=== PATIENT | male | born 1935 | race Caucasian/White ===

== ENCOUNTER 2019-10-20 12:58 | Emergency (ER) | payer MEDICARE ==
[~2019-10-20] VITALS: Ht 190.5 cm; Wt 104.0 kg
[~2019-10-20 12:58] MED LIST: AMOX1TAB12 PO; ASPI-496 PO; ASPI-515 PO/NG; ATOR20TA37 PO; ATOR40TA78 PO; CHOL10003 PO; DEXA4TAB66 PO; HYDR12.517 PO; LISI-170 PO; METO-93 PO
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
--- NOTE | 2019-10-20 14:07 | NUR ---
PT RESTING IN [facility], [facility], DENIES ADDITIONAL NEEDS AT THIS TIME, CALL LIGHT ON LAP, GIVEN SPRITE FOR COMFORT, P/W/D, VSS. WAITING FOR TEST RESULTS, WCTM.
--- NOTE | 2019-10-20 14:10 | NUR ---
KNEE ABRASIONS CLEANED WITH STERILE SALINE, APPLIED NEOSPORIN AND BANDAGED. WCTM.
[2019-10-20 14:16] LABS: MEAN CORPUSCULAR HEMOGLOBIN 30.5 pg (27.5-34.5); MEAN CORPUSCULAR HGB CONC 32.7 g/dL (33.2-36.2); MEAN CORPUSCULAR VOLUME 93.3 fL (81-97); MEAN PLATELET VOLUME 9.6 fL (7.4-10.4); PLATELET COUNT 165 x10^3/uL (130-400); RED BLOOD COUNT 5.08 x10^6/uL (4.38-5.82); RED CELL DISTRIBUTION WIDTH 14.6 % (9.4-14.8)
[2019-10-20] MEDS ORDERED: NEOSPORIN OINT. PKT 1 PACKET ONE (14:16)
[2019-10-20 14:29] LABS: ANION GAP 5 mmol/L (5-15); CALCIUM 8.3 mg/dL (8.5-10.1); CHLORIDE 106 mmol/L (98-107); CREATININE 1.09 mg/dL (0.7-1.3)
[2019-10-20] MEDS ORDERED: POTASSIUM CHLORIDE 20 MEQ TAB.ER.PRT PO ONE (15:00)
[2019-10-20 15:09] LABS: BASOPHILS # (AUTO) 0.08 x10^3/uL (0-0.1); BASOPHILS % (AUTO) 0 % (0-1); EOSINOPHILS # (AUTO) 0.06 x10^3/uL (0-0.4); EOSINOPHILS % (AUTO) 0 % (1-7); LYMPHOCYTES # (AUTO) 1.44 x10^3/uL (1-3.4); LYMPHOCYTES % (AUTO) 7 % (22-44); MD SCAN; MONOCYTES # (AUTO) 0.32 x10^3/uL (0.2-0.8); MONOCYTES % (AUTO) 2 % (2-9); NEUTROPHILS # (AUTO) 17.68 x10^3/uL (1.8-6.8); NEUTROPHILS % (AUTO) 90 % (42-75)
--- NOTE | 2019-10-20 15:21 | NUR ---
PT SITTING UP IN [facility], [facility], DENIES ADDITIONAL NEEDS AT THIS TIME, CALL LIGHT ON LAP, GIVEN SPRITE FOR COMFORT, P/W/D, VSS. WAITING FOR UA RESULTS, WCTM. UA SENT TO LAB.
[2019-10-20 15:29] LABS: MICROSCOPIC NOT IND
[2019-10-20 15:31] LABS: CULTURE INDICATED? NO
--- NOTE | 2019-10-20 15:42 | NUR ---
BREAK RN: ALL TESTS RESULTED PT IS UP FOR RECHECK AT THIS TIME.
--- NOTE | 2019-10-20 16:00 | NUR ---
PT GIVEN POTASSIUM PER MAR. NAD. P/W/D. RESP WNL. Patient/Caregiver given discharge instructions and they have confirmed that they understand the instructions. Patient ambulatory with steady gait. Denies additional questions at this time.
[2019-10-20 16:03] VITALS: BP 131/78
--- NOTE | 2019-10-20 16:05 | NUR ---
pt called [facility] to come pick him up.
== END 2019-10-20 16:06 | disposition home or self-care (01) ==
LOC: ED 14:18
DX: S80.211A Abrasion, right knee, initial encounter (principal); S80.212A Abrasion, left knee, initial encounter; D72.829 Elevated white blood cell count, unspecified; J44.9 Chronic obstructive pulmonary disease, unspecified; I10 Essential (primary) hypertension; I45.10 Unspecified right bundle-branch block; I21.9 Acute myocardial infarction, unspecified; Z86.73 Personal history of transient ischemic attack (TIA), and cerebral infarction without residual deficits; W18.39XA Other fall on same level, initial encounter; Y93.89 Activity, other specified; Y92.488 Other paved roadways as the place of occurrence of the external cause; Y99.8 Other external cause status
CPT/HCPCS: 36415; 80048; 81003; 85025; 93005; 99284

== ENCOUNTER 2019-12-15 08:50 | Emergency (ER) | payer MEDICARE ==
[~2019-12-15] VITALS: Ht 190.5 cm; Wt 100.0 kg
--- NOTE | 2019-12-15 09:11 | NUR ---
SEE TRIAGE NOTE-AGREE. PT PLACED ON ALL ROOM MONITORING. EKG COMPLETED ON ARRIVAL. PT DENIES ANY SX OTHER THAN SLIGHT NUMBNESS TO R ARM AND R LEG. RA SAT RANGING FROM 88-90%. OXYGEN PLACED AT 2LITERS VIA NC. CALL LIGHT WITHIN REACH.
[2019-12-15] MEDS ORDERED: LISI-167 PO (09:22)
--- NOTE | 2019-12-15 09:38 | NUR ---
PT TO IMAGING
[2019-12-15 09:42] LABS: BASOPHILS # (AUTO) 0.03 x10^3/uL (0-0.1); BASOPHILS % (AUTO) 0 % (0-1); EOSINOPHILS # (AUTO) 0.09 x10^3/uL (0-0.4); EOSINOPHILS % (AUTO) 1 % (1-7); LYMPHOCYTES # (AUTO) 1.04 x10^3/uL (1-3.4); LYMPHOCYTES % (AUTO) 13 % (22-44); MD NO; MEAN CORPUSCULAR HEMOGLOBIN 30.1 pg (27.5-34.5); MEAN CORPUSCULAR HGB CONC 32.8 g/dL (33.2-36.2); MEAN CORPUSCULAR VOLUME 91.6 fL (81-97); MONOCYTES # (AUTO) 0.48 x10^3/uL (0.2-0.8); MONOCYTES % (AUTO) 6 % (2-9); NEUTROPHILS # (AUTO) 6.56 x10^3/uL (1.8-6.8); NEUTROPHILS % (AUTO) 80 % (42-75); PLATELET COUNT 181 x10^3/uL (130-400); RED BLOOD COUNT 4.72 x10^6/uL (4.38-5.82); RED CELL DISTRIBUTION WIDTH 14.3 % (9.4-14.8)
[2019-12-15 09:47] LABS: PROTHROMBIN TIME 10.6 Seconds (9.6-11.5)
[2019-12-15 09:49] LABS: ALBUMIN 3.3 g/dL (3.4-5.0); CALCIUM 9.2 mg/dL (8.5-10.1)
[2019-12-15 09:53] LABS: ALANINE AMINOTRANSFERASE 17 U/L (12-78); ALKALINE PHOSPHATASE 67 U/L (45-117); BILIRUBIN,TOTAL 0.9 mg/dL (0.2-1.0); CREATININE 0.76 mg/dL (0.7-1.3); TOTAL PROTEIN 6.9 g/dL (6.4-8.2)
[2019-12-15 10:07] LABS: ANION GAP 4 mmol/L (5-15); CHLORIDE 108 mmol/L (98-107)
[2019-12-15] MEDS ORDERED: GADOTERATE 10 MMOL/20 ML SYR ONE (10:28)
--- NOTE | 2019-12-15 10:34 | NUR ---
PT BACK FROM MRI. PT STATES NUMBNESS TO LUE, LLE GONE NOW. ATTEMPT TO RECHECK VS, UNABLE TO GET AUTO BP AT THIS TIME. OTHER VSS/UPDATED IN COMPUTER. URINAL PROVIDED. CALL LIGHT WITHIN REACH.
--- NOTE | 2019-12-15 10:46 | NUR ---
MANUAL BP 130/85.
--- NOTE | 2019-12-15 11:00 | NUR ---
ALL RESULTS BACK, PT FOR RECHECK.
[2019-12-15 11:52] VITALS: BP 136/82
== END 2019-12-15 11:54 | disposition home or self-care (01) ==
LOC: ED 09:20
DX: G45.9 Transient cerebral ischemic attack, unspecified (principal); E87.6 Hypokalemia; R53.1 Weakness; R20.2 Paresthesia of skin; I44.5 Left posterior fascicular block; I10 Essential (primary) hypertension; J44.9 Chronic obstructive pulmonary disease, unspecified; Z88.9 Allergy status to unspecified drugs, medicaments and biological substances; Z90.89 Acquired absence of other organs; Z79.899 Other long term (current) drug therapy; Z90.49 Acquired absence of other specified parts of digestive tract; Z86.73 Personal history of transient ischemic attack (TIA), and cerebral infarction without residual deficits
CPT/HCPCS: 36415; 70553; 71045; 80053; 85025; 85610; 85730; 93005; 99285; A9575

== ENCOUNTER → 2020-10-24 | Outpatient (CLI) | payer MEDICARE ==
[~2020-10-24] MED LIST changes: -ASPI-515 PO/NG; +ASPI-963 PO/NG; +LISI-167 PO
== END | disposition home or self-care (01) ==
LOC: CFH 15:47
PROVIDERS: ATTEND Internal Medicine Cardiovascular Disease
DX: I08.0 Rheumatic disorders of both mitral and aortic valves (principal); E78.5 Hyperlipidemia, unspecified; I11.9 Hypertensive heart disease without heart failure; Z87.891 Personal history of nicotine dependence
CPT/HCPCS: 93306

== ENCOUNTER 2021-01-29 21:25 | Emergency (ER) | payer MEDICARE ==
[~2021-01-29] VITALS: Ht 185.4 cm; Wt 104.5 kg
--- NOTE | 2021-01-29 21:46 | NUR ---
PT BIB [facility] FROM HOME FOR C/O "CONFUSION AND WEIRD DREAMS". 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 PT STATES, "THEY TOLD ME IF I HAD SYMPTOMS LIKE THIS, SOMETHING MIGHT BE GOING ON". NO UNILATERAL WEAKNESS OR DEFICITS NOTED. PT A&OX4. IV STARTED BY [facility]. PT AMBULATORY IN ROOM. 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 EKG DONE IMMEDIATELY AT BS. SPO2 89-90% ON RA, PT PLACED ON 2L O2 NC. PER [facility], PT HAS HX COPD AND IS SUPPOSED TO WEAR O2 AT NIGHT AT HOME BUT PT STATES, "I HAVEN'T BEEN USING LATELY, I'VE BEEN LAZY".
--- NOTE | 2021-01-29 21:59 | NUR ---
ERP AT BS.
[2021-01-29 22:36] LABS: BASOPHILS % (AUTO) 1 % (0-1); EOSINOPHILS % (AUTO) 0 % (1-7); LYMPHOCYTES % (AUTO) 18 % (22-44); MEAN CORPUSCULAR HEMOGLOBIN 30.6 pg (27.5-34.5); MEAN CORPUSCULAR HGB CONC 33.1 g/dL (33.2-36.2); MONOCYTES % (AUTO) 6 % (2-9); NEUTROPHILS % (AUTO) 75 % (42-75); PLATELET COUNT 156 x10^3/uL (130-400); RED BLOOD COUNT 4.74 x10^6/uL (4.38-5.82); RED CELL DISTRIBUTION WIDTH 15.2 % (9.4-14.8)
[2021-01-29 22:49] LABS: ALBUMIN 2.9 g/dL (3.4-5.0); ANION GAP 8 mmol/L (5-15); CALCIUM 8.2 mg/dL (8.5-10.1); CHLORIDE 113 mmol/L (98-107)
[2021-01-29 22:53] LABS: ALANINE AMINOTRANSFERASE 19 U/L (12-78); ALKALINE PHOSPHATASE 83 U/L (45-117); BILIRUBIN,TOTAL 1.4 mg/dL (0.2-1.0); CREATININE 0.93 mg/dL (0.7-1.3); TOTAL PROTEIN 6.2 g/dL (6.4-8.2)
--- NOTE | 2021-01-29 22:58 | NUR ---
ERP AT FOR RECHECK.
[2021-01-29 23:34] VITALS: BP 141/101
--- NOTE | 2021-01-30 | NUR ---
D/C INSTRUCTIONS, MEDS & F/U APPT RV'WD WITH PT, HE VERBALIZES UNDERSTANDING. STABLE ON DISCHARGE. RX GIVEN X1. COPY OF CT RESULTS AND DISC WITH IMAGES PROVIDED TO PT. INSTRUCTED PT TO USE HOME O2 AT 3L NC AND PULSE OX AND RETURN TO ED FOR SOB, SPO2 LESS THAN 90%, OR ANY CONCERNING SYMPTOMS. ASSISTED PT OUT OF ED VIA WC. CAB VOUCHER PROVIDED.
== END 2021-01-30 00:01 | disposition home or self-care (01) ==
LOC: ED 21:55
DX: J18.1 Lobar pneumonia, unspecified organism (principal); R42 Dizziness and giddiness; R51.9 Headache, unspecified; R00.0 Tachycardia, unspecified; I10 Essential (primary) hypertension; J44.9 Chronic obstructive pulmonary disease, unspecified; Z86.73 Personal history of transient ischemic attack (TIA), and cerebral infarction without residual deficits
CPT/HCPCS: 36415; 70450; 71045; 80053; 83735; 85025; 93005; 99285

== ENCOUNTER 2021-02-28 21:11 | Inpatient (IN) | payer MEDICARE ==
[~2021-02-28] VITALS: Ht 182.9 cm; Wt 87.5 kg
--- NOTE | 2021-02-28 21:23 | NUR ---
[facility] reports patient had several near syncopal episodes today. The patient reports he was able to lower himself to the ground each time, denies any head trauma. Patient reports a new diagnosis of a brain tumor, loss of appitite x2 weeks with no weight loss, and a decrease in his activity levels. Patient is AOx4.
--- NOTE | 2021-02-28 21:27 | NUR ---
EKG DONE AT THIS TIME
--- NOTE | 2021-02-28 22:08 | NUR ---
Patient to CT
--- NOTE | 2021-02-28 22:19 | NUR ---
patient return from CT
[2021-02-28 22:20] LABS: ALANINE AMINOTRANSFERASE 28 U/L (12-78); ALBUMIN 2.9 g/dL (3.4-5.0); ANION GAP 7 mmol/L (5-15); CALCIUM 7.8 mg/dL (8.5-10.1); CHLORIDE 107 mmol/L (98-107); CREATININE 0.76 mg/dL (0.7-1.3)
[2021-02-28 22:24] LABS: ALKALINE PHOSPHATASE 58 U/L (45-117); BILIRUBIN,TOTAL 1.1 mg/dL (0.2-1.0); TROPONIN I < 0.015 ng/mL (0.000-0.045)
[2021-02-28 22:25] LABS: BASOPHILS % (AUTO) 0 % (0-1); EOSINOPHILS % (AUTO) 1 % (1-7); LYMPHOCYTES % (AUTO) 19 % (22-44); MEAN CORPUSCULAR HEMOGLOBIN 30.8 pg (27.5-34.5); MEAN CORPUSCULAR HGB CONC 33.4 g/dL (33.2-36.2); MEAN PLATELET VOLUME 10.2 fL (7.4-10.4); MONOCYTES % (AUTO) 7 % (2-9); NEUTROPHILS % (AUTO) 73 % (42-75); PLATELET COUNT 115 x10^3/uL (130-400); RED CELL DISTRIBUTION WIDTH 14.9 % (9.4-14.8)
[2021-02-28] MEDS ORDERED: POTASSIUM CHLORIDE 20 MEQ TAB.ER.PRT PO ONE (23:00)
[2021-02-28] MEDS ORDERED: POTASSIUM CHLORIDE 40 MEQ in SODIUM CHLORIDE 0.9% 500 ML IV ONE (23:00)
[2021-02-28] MEDS ORDERED: POTASSIUM CHLORIDE 20 MEQ TAB.ER.PRT ONE (23:17)
--- NOTE | 2021-02-28 23:29 | NUR ---
Patient medicated per AUG. Patient resting on [facility] at this time, no needs present. Will continue to monitor.
--- NOTE | 2021-03-01 00:25 | NUR ---
TP RN: MIREYA ALEJO AT [facility] DECLINED PT.
[2021-03-01] MEDS ORDERED: ONDANSETRON ODT 4 MG PO PRN (00:30)
[2021-03-01] MEDS ORDERED: ACETAMINOPHEN 325 MG TABLET PO PRN (00:30)
[2021-03-01] MEDS ORDERED: POLYETHYLENE GLYCOL 17 GM PACKET PO PRN (00:30)
[2021-03-01] MEDS ORDERED: BISACODYL 10 MG SUPP PR PRN (00:30)
--- NOTE | 2021-03-01 00:42 | NUR ---
TASK RN: PT RESTING ON [facility] RESP EVEN UNLABORED, FLUIDS INFUSING W/OUT DIFFICULTY.
--- NOTE | 2021-03-01 01:10 | NUR ---
TASK RN: US AT BEDSIDE
[2021-03-01] MEDS ORDERED: PROPOFOL 10 MG/ML, 20ML ONE (02:14)
[2021-03-01] MEDS ORDERED: PROPOFOL 10 MG/ML, 20ML IVPush ONE (02:30)
--- NOTE | 2021-03-01 02:48 | NUR ---
Pt to be admitted to [facility], room 524. Report called to Jorge.
[2021-03-01 03:11] VITALS: BP 119/81
[2021-03-01] MEDS ORDERED: MAGNESIUM SULFATE 3 GM in SODIUM CHLORIDE 0.9% 100 ML IV ONE (04:30)
[2021-03-01] MEDS: NS + 20MEQ KCL 1,000 ML IV SCH ×2 (05:11→22:20)
[2021-03-01 05:45] LABS: BASOPHILS % (AUTO) 0 % (0-1); EOSINOPHILS % (AUTO) 1 % (1-7); LYMPHOCYTES % (AUTO) 18 % (22-44); MEAN CORPUSCULAR HEMOGLOBIN 30.8 pg (27.5-34.5); MEAN CORPUSCULAR HGB CONC 33.7 g/dL (33.2-36.2); MEAN PLATELET VOLUME 10.3 fL (7.4-10.4); MONOCYTES % (AUTO) 6 % (2-9); NEUTROPHILS % (AUTO) 75 % (42-75); PLATELET COUNT 117 x10^3/uL (130-400); RED BLOOD COUNT 4.59 x10^6/uL (4.38-5.82); RED CELL DISTRIBUTION WIDTH 14.9 % (9.4-14.8)
[2021-03-01 05:58] LABS: CHLORIDE 109 mmol/L (98-107)
[2021-03-01 06:07] LABS: ANION GAP 7 mmol/L (5-15); CALCIUM 8.3 mg/dL (8.5-10.1); CREATININE 0.63 mg/dL (0.7-1.3); TROPONIN I < 0.015 ng/mL (0.000-0.045)
[2021-03-01 08:29] VITALS: BP 112/81
[2021-03-01] MEDS: SENNA/DOCUSATE TABLET PO SCH (09:00)
[2021-03-01] MEDS: ASPIRIN 81 MG TABLET EC PO SCH (09:38)
[2021-03-01] MEDS: POTASSIUM CHLORIDE 20 MEQ TAB.ER.PRT PO SCH ×2 (09:38→20:08)
[2021-03-01] MEDS: LISINOPRIL 20 MG TABLET PO SCH (09:38)
[2021-03-01] MEDS: METOPROLOL SUCCINATE 50 MG TAB.ER.24H PO SCH (09:39)
[2021-03-01 14:00] VITALS: BP 111/75
[2021-03-01 19:55] VITALS: BP 107/74
[2021-03-01 20:00] VITALS: BP 105/70
[2021-03-01 20:05] VITALS: BP 115/78
[2021-03-02 00:51] VITALS: BP 114/77
[2021-03-02 07:54] VITALS: BP 124/90
[2021-03-02] MEDS: ASPIRIN 81 MG TABLET EC PO SCH (08:53)
[2021-03-02] MEDS: POTASSIUM CHLORIDE 20 MEQ TAB.ER.PRT PO SCH (08:53)
[2021-03-02] MEDS: METOPROLOL SUCCINATE 50 MG TAB.ER.24H PO SCH (08:53)
[2021-03-02] MEDS: LISINOPRIL 20 MG TABLET PO SCH (08:53)
[2021-03-02] MEDS: SENNA/DOCUSATE TABLET PO SCH (08:55)
[2021-03-02 13:26] VITALS: BP 121/80
[2021-03-02] MEDS ORDERED: ATOR40TA78 PO (16:43)
[2021-03-02] MEDS ORDERED: SPIR25TA PO (16:43)
== END 2021-03-02 18:30 | disposition home or self-care (01) | DRG 74 ==
LOC: ED 23:58 → EDIP 03-01 → 5SO 03-01 03:05
PROVIDERS: ADMIT Family Medicine; ATTEND Internal Medicine
PROC: 5A2204Z Restoration of Cardiac Rhythm, Single (ICD-10-PCS; principal; 2021-03-01)
DX: G90.8 Other disorders of autonomic nervous system (principal); I50.20 Unspecified systolic (congestive) heart failure; E87.6 Hypokalemia; D69.6 Thrombocytopenia, unspecified; R00.0 Tachycardia, unspecified; R55 Syncope and collapse; E87.5 Hyperkalemia; I35.0 Nonrheumatic aortic (valve) stenosis; I11.0 Hypertensive heart disease with heart failure; J44.9 Chronic obstructive pulmonary disease, unspecified; Z80.9 Family history of malignant neoplasm, unspecified; Z86.73 Personal history of transient ischemic attack (TIA), and cerebral infarction without residual deficits; Z90.49 Acquired absence of other specified parts of digestive tract
CPT/HCPCS: 36415; 70450; 80048; 80053; 83735; 84132; 84484; 85025; 92960; 93005; 93306; 93880; 99285; G0378; J3475; J3480; J7040